=== PATIENT | male | born 1980 | race Caucasian/White ===

== ENCOUNTER 2022-04-27 14:00 | Outpatient (CLI) | payer BC, SELFPAY ==
[2022-04-27 09:38] LABS: Chloride* 103 mmol/L (96-114)
[2022-04-27 09:39] LABS: Albumin* 4.5 g/dL (3.3-5.0); Sodium* 139 mmol/L (135-149)
[2022-04-27 09:41] LABS: Cholesterol* 202 mg/dL (90-199)
[2022-04-27 09:42] LABS: Alanine Aminotransferase* 13 U/L (4-50); Alkaline Phosphatase* 70 U/L (40-150); Aspartate Amino Transferase* 21 U/L (12-35); Bilirubin Total* 0.5 mg/dL (0.1-1.5); Blood Urea Nitrogen* 11 mg/dL (5-24); Calcium* 9.4 mg/dL (8.4-10.6); Creatinine* 0.9 mg/dL (0.5-1.5); Estimated Glomerular Filt Rate 111 ml/min; Glucose* 89 mg/dL (60-115); HDL Cholesterol* 51 mg/dL (>=40); LDL Cholesterol Calculated 120 mg/dL (<100); Triglycerides* 154 mg/dL (40-149)
[2022-04-27 10:07] LABS: Carbon Dioxide* 27 mmol/L (20-32)
== END 2022-04-27 14:01 | disposition home or self-care (01) ==
PROVIDERS: PCP Family Medicine; Visit Provider Family Medicine
DX: E78.5 Hyperlipidemia, unspecified (principal); F41.9 Anxiety disorder, unspecified
CPT/HCPCS: 80053; 80061

== ENCOUNTER 2023-05-30 10:07 | Outpatient (CLI) | payer BC, SELFPAY ==
--- NOTE | 2023-05-30 10:15 | CRLHL7_ITS ---
For Patients: As a result of the Century Cures Act, medical imaging exams and procedure reports are released immediately into your electronic medical record. You may view this report before your referring provider. If you have questions, please contact your health care provider. Indication: Neuralgia. Neuritis. Technique: MRI of the cervical spine was performed without the use of intravenous contrast. Comparison: Cervical spine radiographs 04/04/2023. Findings: The vertebral body heights appear maintained without evidence of fracture. No discrete T1 hypointense marrow infiltrating process. Mild multilevel disc desiccation, without significant height loss. No abnormal cord signal. C2-3: No spinal canal or neural foraminal narrowing. C3-4: No spinal canal or neural foraminal narrowing. C4-5: Disc bulge effaces the ventral thecal sac results in mild spinal canal narrowing. Mild neural foraminal narrowing secondary to uncovertebral and facet hypertrophy. C5-6: Disc bulge resulting in mild spinal canal narrowing. Mild to moderate left and mild right neural foraminal narrowing secondary to uncovertebral and facet hypertrophy. C6-7: Disc bulge resulting in mild spinal canal narrowing. Moderate neural foraminal narrowing secondary to uncovertebral and facet hypertrophy. C7-T1: No spinal canal or neural foraminal narrowing. Impression: 1. At C4-5, mild spinal canal and neural foraminal narrowing. 2. At C5-6, mild spinal canal with mild to moderate left and mild right neural foraminal narrowing. 3. At C6-7, mild spinal canal with moderate neural foraminal narrowing. 4. No abnormal cord signal. Dictated by Arturo Lind MD @ 05/30/2023 12:02:15 PM (Electronically Signed)
== END 2023-05-30 10:08 | disposition home or self-care (01) ==
PROVIDERS: PCP Family Medicine; Visit Provider Family Medicine
DX: M79.2 Neuralgia and neuritis, unspecified (principal); M50.221 Other cervical disc displacement at C4-C5 level; M50.222 Other cervical disc displacement at C5-C6 level; M50.223 Other cervical disc displacement at C6-C7 level
CPT/HCPCS: 72141

== ENCOUNTER 2024-11-20 09:08 | Outpatient (CLI) | payer BC, SELFPAY | END 2024-11-20 09:09 | disposition home or self-care (01) | LOC: LKVREF 09:09 | PROVIDERS: PCP Family Medicine; Visit Provider Family Medicine | DX: E78.5 Hyperlipidemia, unspecified (principal); Z13.1 Encounter for screening for diabetes mellitus | CPT/HCPCS: 80048 ==